=== PATIENT | female | born 1940 | race Caucasian/White ===

== ENCOUNTER 2019-01-12 07:18 | Inpatient (IN) | payer MEDICARE ==
[2019-01-12] MEDS ORDERED: ONDANSETRON HCL INJ/PF 4 MG/2 ML SDV IV ONE (08:35)
[2019-01-12 08:58] LABS: APPEARANCE,URINE SLIGHTLY-CLOUDY; BILIRUBIN,URINE NEGATIVE (NEGATIVE); COLOR,URINE YELLOW; GLUCOSE, URINE NEGATIVE (NEGATIVE); KETONES,URINE NEGATIVE (NEGATIVE); LEUKOCYTE ESTERASE,URINE SMALL (NEGATIVE); NITRITE,URINE NEGATIVE (NEGATIVE); PROTEIN,URINE NEGATIVE (NEGATIVE)
[2019-01-12] MEDS ORDERED: SUCRALFATE SUSP 1 GM/10 ML UDCUP PO ONE (09:04)
[2019-01-12] MEDS ORDERED: FAMOTIDINE INJ/PF 20 MG/2 ML SDV IV ONE (09:04)
[2019-01-12 09:27] LABS: HEMATOCRIT 45.2 % (36.0-47.0); HEMOGLOBIN 15.2 g/dL (12.0-15.5); MEAN CORPUSCULAR HEMOGLOBIN 30.1 pg (27.0-33.4); MEAN CORPUSCULAR HGB CONC 33.7 g/dL (32.0-36.0); MEAN CORPUSCULAR VOLUME 90 fl (80-97); PLATELET COUNT 210 10^3/uL (150-450); RED BLOOD COUNT 5.05 10^6/uL (3.72-5.28); RED CELL DISTRIBUTION WIDTH 13.7 % (11.5-14.0); WHITE BLOOD COUNT 16.9 10^3/uL (4.0-10.5)
[2019-01-12 09:43] LABS: ALANINE AMINOTRANSFERASE 418 U/L (9-52); ALBUMIN 4.5 g/dL (3.5-5.0); ALKALINE PHOSPHATASE 299 U/L (38-126); ANION GAP 9 (5-19); ASPARTATE AMINO TRANSFERASE 359 U/L (14-36); BILIRUBIN,DIRECT 2.6 mg/dL (0.0-0.4); BILIRUBIN,TOTAL 3.5 mg/dL (0.2-1.3); BLOOD UREA NITROGEN 22 mg/dL (7-20); CALCIUM 9.7 mg/dL (8.4-10.2); CARBON DIOXIDE 35 mmol/L (22-30); CHLORIDE 96 mmol/L (98-107); GLUCOSE 181 mg/dL (75-110); POTASSIUM 3.6 mmol/L (3.6-5.0); SODIUM 139.8 mmol/L (137-145); TOTAL PROTEIN 7.9 g/dL (6.3-8.2)
[2019-01-12 09:59] LABS: ABSOLUTE LYMPHOCYTES# (MANUAL) 0.2 10^3/uL (0.5-4.7); ABSOLUTE MONOCYTES # (MANUAL) 0.7 10^3/uL (0.1-1.4); ABSOLUTE NEUTROPHILS# (MANUAL) 16.1 10^3/uL (1.7-8.2); BASOPHILS % (MANUAL) 0 % (0-2); EOSINOPHILS % (MANUAL) 0 % (0-6); LYMPHOCYTES % (MANUAL) 1 % (13-45); MONOCYTES % (MANUAL) 4 % (3-13); PLATELET COMMENT ADEQUATE; RBC MORPHOLOGY COMMENT NORMO-CYTIC/CHROMIC; SEGMENTED NEUTROPHILS % (MAN) 95 % (42-78); TOTAL CELLS COUNTED 100
[2019-01-12 10:33] LABS: LIPASE 32621.6 U/L (23-300)
--- NOTE | 2019-01-12 10:45 | RADIOLOGY REPORT (SQ) ---
EXAM DESCRIPTION: CT ABD/PELVIS WITH IV ONLY COMPLETED DATE/TIME: 01/12/2019 10:31 am REASON FOR STUDY: epigastric pain/vomiting COMPARISON: None. TECHNIQUE: CT scan of the abdomen and pelvis performed using helical scanning technique with dynamic intravenous contrast injection. No oral contrast. Images reviewed with lung, soft tissue, and bone windows. Reconstructed coronal and sagittal MPR images reviewed. Delayed images for evaluation of the urinary system also acquired. All images stored on PACS. All CT scanners at this facility use dose modulation, iterative reconstruction, and/or weight based d osing when appropriate to reduce radiation dose to as low as reasonably achievable (ALARA). [facility]: Dose Right [facility]: CareDose [facility]: Dose Right [facility]: Teradose 4D [facility]: BIMA CONTRAST TYPE AND DOSE: contrast/concentration: Isovue 350.00 mg/ml; Total Contrast Delivered: 95.0 ml; Total Saline Delivered: 42.7 ml RENAL FUNCTION: Creatinine 1.0 RADIATION DOSE: CT Rad equipment meets quality standard of care and radiation dose reduction techniq ues were employed. CTDIvol: 12.4 - 15.6 mGy. DLP: 1495 mGy-cm.. LIMITATIONS: None. FINDINGS: LOWER CHEST: Patchy airspace disease at the left lung base, atelectasis versus pneumonia. LIVER: Normal size. No masses. No dilated ducts. SPLEEN: Normal size. No focal lesions. PANCREAS: No masses. No significant calcifications. No adjacent inflammation or peripancreatic fluid collections. Pancreatic duct not dilated. GALLBLADDER: There is pericholecystic fluid on coronal images 27-30. Question cholecystitis. Right upper quadrant ultrasound is recommended for followup, to evaluate for gallstones and common duct sto michelle. ADRENAL GLANDS: No significant masses or asymmetry. RIGHT KIDNEY AND URETER: No solid masses. No significant calcifications. No hydronephrosis or hyd roureter. LEFT KIDNEY AND URETER: No solid masses. 4 mm right upper pole intrarenal nonobstructive stone janny nal image 44/69. No hydronephrosis or hydroureter. AORTA AND VESSELS: No aneurysm. No dissection. Renal arteries, SMA, celiac without stenosis. RETROPERITONEUM: No retroperitoneal adenopathy, hemorrhage or masses. BOWEL AND PERITONEAL CAVITY: No free intraperitoneal air. No CT evidence of bowel obstruction. Sigm oid colon diverticuli without CT signs of acute diverticulitis. APPENDIX: Normal. PELVIS: Streak artifact from bilateral total hip replacements. Grossly normal size uterus. Bladder not well seen. No gross free fluid or pelvic adenopathy ABDOMINAL WALL: No masses. No hernias. BONES: Degenerative disc changes throughout the lumbar spine. Bilateral total hip replacements OTHER: No other significant finding. IMPRESSION: Pericholecystic fluid, question acute cholecystitis. Right upper quadrant ultrasound is recommended to evaluate for gallstones/ common bile duct stones TECHNICAL DOCUMENTATION: JOB ID: [id number] Quality ID # [id number]: Final reports with documentation of one or more dose reduction techniques (e.g., Au tomated exposure control, adjustment of the mA and/or kV according to patient size, use of iterative reconstruction technique) 2010 [employer]- All Rights Reserved Reading location - IP/workstation name: [email or web address]
[2019-01-12] MEDS ORDERED: FENTANYL CITRATE INJ/PF 100 MCG/2 ML AMPUL IV ONE (10:47)
[2019-01-12] MEDS ORDERED: PIPERACILLIN/TAZOBACTAM 4.5 GM VIAL IV ONE (10:54)
[2019-01-12] MEDS ORDERED: RINGERS SOLUTION,LACTATED 1,000 ML IV ONE (11:42)
--- NOTE | 2019-01-12 11:54 | ER Document Report ---
ED General <ELIZABETH MONTALVO - Last Filed: 01/12/19 21:24> - General TRAVEL OUTSIDE OF THE [place] IN LAST 30 DAYS: No <ART STACY - Last Filed: 01/13/19 12:33> - General Chief Complaint: Abdominal Pain Stated Complaint: ABDOMINAL PAIN Time Seen by Provider: 01/12/19 08:35 Primary Care Provider: MARILIN CASTANON MD [Primary Care Provider] - Follow up as needed Notes: Patient is a 70-year-old female presents to the emergency department for generalized abdominal pain intermittently for the last year and a half. Patient states she has vomited x5 last night and has increased in her epigastric abdominal pain which is why she presents to the emergency room. Patient is denying any diarrhea. She is denying any fever but states yesterday she did have chills. Patient states her last bowel movement was in the emergency room in triage and was "normal." Patient is denying any chest pain or shortness of breath. Past medical history: Hypertension, GERD, pseudogout Medications: HCTZ, colchicine, omeprazole, diclofenac Allergies: Lisinopril (ART STACY) - Related Data Allergies/Adverse Reactions: lisinopril [Lisinopril] Allergy (Mild, Verified 01/12/19 07:21) cough Past Medical History - General Information source: Patient - Social History Smoking Status: Never Smoker Chew tobacco use (# tins/day): No Frequency of alcohol use: None Drug Abuse: None Family History: Reviewed & Not Pertinent Patient has suicidal ideation: No Patient has homicidal ideation: No - Past Medical History Cardiac Medical History: Reports: Hx Hypertension - medicated Denies: Hx Heart Attack Pulmonary Medical History: Denies: Hx Asthma Neurological Medical History: Denies: Hx Cerebrovascular Accident, Hx Seizures Renal/ Medical History: Denies: Hx Peritoneal Dialysis GI Medical History: Denies: Hx Hepatitis, Hx Hiatal Hernia, Hx Ulcer Infectious Medical History: Denies: Hx Hepatitis Past Surgical History: Reports: Hx Orthopedic Surgery - back, hips,. Denies: Hx Hysterectomy, Hx Mastectomy, Hx Open Heart Surgery, Hx Pacemaker <ART STACY - Last Filed: 01/13/19 12:33> Review of Systems - Review of Systems Constitutional: See HPI EENT: No symptoms reported Cardiovascular: No symptoms reported Respiratory: No symptoms reported Gastrointestinal: See HPI Genitourinary: No symptoms reported Female Genitourinary: No symptoms reported Musculoskeletal: No symptoms reported Skin: No symptoms reported Hematologic/Lymphatic: No symptoms reported Neurological/Psychological: No symptoms reported <ART STACY - Last Filed: 01/13/19 12:33> Physical Exam <ART STACY - Last Filed: 01/13/19 12:33> - Vital signs Vitals: Temp Pulse Resp BP Pulse Ox 98.7 F 97 16 146/67 H 94 01/12/19 07:23 01/12/19 07:23 01/12/19 07:23 01/12/19 07:23 01/12/19 07:23 - Notes Notes: GENERAL: Pallor alert, interacts well. No acute distress. HEAD: Normocephalic, atraumatic. EYES: Pupils equal, round, and reactive to light. Extraocular movements intact. No scleral icterus noted ENT: Oral mucosa moist, tongue midline. NECK: Full range of motion. Supple. Trachea midline. LUNGS: Clear to auscultation bilaterally, no wheezes, rales, or rhonchi. No respiratory distress. HEART: Regular rate and rhythm. No murmur ABDOMEN: Soft, Non-distended. Bowel sounds present in all 4 quadrants. General ized tenderness noted right upper quadrant epigastric right lower quadrant and left lower quadrant. EXTREMITIES: Moves all 4 extremities spontaneously. No edema, normal radial and dorsalis pedis pulses bilaterally. No cyanosis. BACK: no cervical, thoracic, lumbar midline tenderness. No saddle anesthesia, normal distal neurovascular exam. No CVA tenderness noted bilaterally NEUROLOGICAL: Alert and oriented x3. Normal speech. cranial nerves II through XII grossly intact PSYCH: Normal affect, normal mood. SKIN: Warm, dry, normal turgor. No rashes or lesions noted. (ART STACY) Course - Laboratory Result Diagrams: 01/12/19 09:06 01/12/19 09:06 <ELIZABETH MONTALVO - Last Filed: 01/12/19 21:24> - Laboratory Result Diagrams: 01/13/19 05:10 01/13/19 05:10 <ART STACY - Last Filed: 01/13/19 12:33> - Re-evaluation Re-evalutation: 01/12/19 19:30 Spoke with transfer center at [facility]. They are not accepting any patients even to waiting lists at this time due to capacity. ERCP is not available at [facility]. 01/12/19 21:25 Called and spoke with [facility] transfer center, they connected me to the ED, I spoke to ED physician Dr. Aldrich. He declined the patient, states they have a long list of accepted pending patients and they will not be able to take my patient. He states since the patient is accepted to [facility], although still waiting, he declines the patient. (KATIA,ELIZABETH) Patient's labs do reveal a transaminase, AST 359, ALT 418, alk phos, 299. Patient's total bilirubin is 3.5, direct bilirubin is 2.6, patient's lipase is 32,006 21. Patient does have a leukocytosis of 16.9. Patient is afebrile and does not appear jaundice, does appear pale in the emergency room. Patient's general abdominal CT is suggestive of cholecystitis, recommending an ultrasound, ordered at this time. Discussed case with Dr. Collins gastroenterology at [facility] who will accept the patient at their facility. Accepting physician will be hospitalist Dr. Baltazar Becker. Patient states she is no longer nauseated but does have continued pain. Pain medication ordered. Dr. Collins is recommending lactated Ringer's at 200 mL an hour. Patient's vitals are currently stable. 01/13/19 11:49 Patient has not been in the emergency department for over 24 hours. gastroenterology and julieta Muñoz had called the hospital and requested that we speak with our surgeon to perform an MRCP. States they do not have any beds and are unsure of when they are going to have a bed for the patient to be transferred. Our facility does not have access to ERCPs. He is requesting an MRCP and further care for the patient's pancreatitis. Our surgeon Dr. Melo spoke with gastroenterology Dr. Vaughn and have agreed naveen t the patient should be admitted to [facility]. Dr. Melo is requesting I speak with the hospitalist at [facility] to admit the patient as a medical patient with a surgery consult. I spoke with hospitalist Dr. Hussein who is expressing that this is a surgical patient and he will not admit. States typically these patients are admitted to the surgical list and medicine is consulted. Again discussed case with surgeon Dr. Melo who states he will admit the patient to his service. (ART STACY) - Vital Signs Vital signs: Temp Pulse Resp BP Pulse Ox 98.5 F 82 16 124/54 L 93 01/13/19 08:16 01/12/19 20:51 01/13/19 07:01 01/13/19 08:01 01/13/19 08:01 - Laboratory Laboratory results interpreted by me: 01/12/19 01/12/19 01/12/19 08:27 09:06 09:06 WBC 16.9 H Hct Seg Neuts % (Manual) 95 H Lymphocytes % (Manual) 1 L Abs Neuts (Manual) 16.1 H Abs Lymphs (Manual) 0.2 L Potassium Chloride 96 L Carbon Dioxide 35 H BUN 22 H Est GFR (Non-Af Amer) 54 L Glucose 181 H Total Bilirubin 3.5 H Direct Bilirubin 2.6 H AST 359 H ALT 418 H Alkaline Phosphatase 299 H Total Protein Albumin Lipase 31150.6 H Urine Blood SMALL H Urine Urobilinogen 4.0 H Ur Leukocyte Esterase SMALL H 01/13/19 01/13/19 05:10 05:10 WBC Hct 35.7 L Seg Neuts % (Manual) Lymphocytes % (Manual) Abs Neuts (Manual) Abs Lymphs (Manual) Potassium 3.4 L Chloride Carbon Dioxide 34 H BUN Est GFR (Non-Af Amer) Glucose Total Bilirubin 4.8 H Direct Bilirubin 3.6 H AST 181 H ALT 269 H Alkaline Phosphatase 222 H Total Protein 5.2 L Albumin 2.9 L Lipase 673.4 H Urine Blood Urine Urobilinogen Ur Leukocyte Esterase Discharge <ELIZABETH MONTALVO - Last Filed: 01/12/19 21:24> - Discharge Admitting Provider: Surgicalist - Dr. Melo Unit Admitted: Surgical Floor <ART STACY - Last Filed: 01/13/19 12:33> - Discharge Clinical Impression: Cholecystitis Pancreatitis Qualifiers: Chronicity: acute Pancreatitis type: other Acute pancreatitis complication: unspecified Qualified Code(s): K85.80 - Other acute pancreatitis without necrosis or infection Condition: Fair Disposition: ADMITTED INPATIENT Referrals: MARILIN CASTANON MD [Primary Care Provider] - Follow up as needed
--- NOTE | 2019-01-12 12:44 | RADIOLOGY REPORT (SQ) ---
EXAM DESCRIPTION: U/S ABDOMEN LTD W/DOPPLER COMPLETED DATE/TIME: 01/12/2019 12:35 pm REASON FOR STUDY: RUQ pain COMPARISON: CT abdomen pelvis, 01/12/2019 TECHNIQUE: Dynamic and static grayscale images acquired of the abdomen and recorded on PACS. Maricruz may selected color Doppler and spectral images recorded. LIMITATIONS: None. FINDINGS: PANCREAS: Poorly visualized. LIVER: No masses. Echotexture normal. LIVER VASCULATURE: Normal directional flow of the main portal vein and hepatic veins. GALLBLADDER: Gallstones and gall sludge. Thickening of the gallbladder wall to 0.5 cm. Small volume pericholecystic fluid. ULTRASOUND-DETECTED FALCON'S SIGN: Indeterminate due to patient medication. INTRAHEPATIC DUCTS AND COMMON DUCT: CBD and intrahepatic ducts normal caliber. No filling defects. INFERIOR VENA CAVA: Normal flow. AORTA: No aneurysm. RIGHT KIDNEY: Normal size. Normal echogenicity. No solid or suspicious masses. No hydronephrosis. No calcifications. PERITONEAL AND RIGHT PLEURAL SPACE: No ascites or effusions. OTHER: No other significant findings. IMPRESSION: Gallstones and gall sludge with thickening of the gallbladder wall to 0.5 cm. Small vol ume pericholecystic fluid. No biliary ductal dilatation. Sonographic Falcon sign indeterminate due to patient medication. Findings are concerning for acute cholecystitis. HIDA may be used to evaluat e for patency of the cystic and common bile ducts if desired. TECHNICAL DOCUMENTATION: JOB ID: [id number] [employer] All Rights Reserved Reading location - IP/workstation name: [email or web address]
[2019-01-12] MEDS: RINGERS SOLUTION,LACTATED 1,000 ML IV PRN ×2 (14:18→19:22)
[2019-01-12] MEDS ORDERED: RINGERS SOLUTION,LACTATED 1,000 ML IV PRN (18:03)
[2019-01-12] MEDS ORDERED: ONDANSETRON HCL INJ/PF 4 MG/2 ML SDV IV PRN (19:01)
[2019-01-12] MEDS ORDERED: FENTANYL CITRATE INJ/PF 100 MCG/2 ML AMPUL IV PRN (19:02)
[2019-01-12] MEDS: PIPERACILLIN/TAZOBACTAM 3.375 GM VIAL IV SCH (19:56)
[2019-01-13] MEDS: PIPERACILLIN/TAZOBACTAM 3.375 GM VIAL IV SCH ×3 (01:18→13:15)
[2019-01-13 05:34] LABS: ABSOLUTE EOSINOPHILS # (AUTO) 0.2 10^3/uL (0.0-0.6); ABSOLUTE LYMPHOCYTES (AUTO) 1.3 10^3/uL (0.5-4.7); ABSOLUTE MONOCYTES (AUTO) 0.7 10^3/uL (0.1-1.4); ABSOLUTE NEUT (AUTO) 5.1 10^3/uL (1.7-8.2); BASOPHILS % (AUTO) 0.7 % (0-2); EOSINOPHILS % (AUTO) 2.4 % (0-6); HEMATOCRIT 35.7 % (36.0-47.0); LYMPHOCYTES % (AUTO) 17.3 % (13-45); MEAN CORPUSCULAR HEMOGLOBIN 30.4 pg (27.0-33.4); MEAN CORPUSCULAR HGB CONC 34.4 g/dL (32.0-36.0); MEAN CORPUSCULAR VOLUME 88 fl (80-97); MONOCYTES % (AUTO) 9.6 % (3-13); PLATELET COUNT 161 10^3/uL (150-450); RED BLOOD COUNT 4.05 10^6/uL (3.72-5.28); RED CELL DISTRIBUTION WIDTH 13.9 % (11.5-14.0); TOTAL CELLS COUNTED % (AUTO) 100 %; WHITE BLOOD COUNT 7.2 10^3/uL (4.0-10.5)
[2019-01-13 05:41] LABS: ALANINE AMINOTRANSFERASE 269 U/L (9-52); ALBUMIN 2.9 g/dL (3.5-5.0); ALKALINE PHOSPHATASE 222 U/L (38-126); ANION GAP 7 (5-19); ASPARTATE AMINO TRANSFERASE 181 U/L (14-36); BILIRUBIN,DIRECT 3.6 mg/dL (0.0-0.4); BILIRUBIN,TOTAL 4.8 mg/dL (0.2-1.3); BLOOD UREA NITROGEN 17 mg/dL (7-20); CALCIUM 8.8 mg/dL (8.4-10.2); CARBON DIOXIDE 34 mmol/L (22-30); CHLORIDE 101 mmol/L (98-107); GLUCOSE 99 mg/dL (75-110); LIPASE 673.4 U/L (23-300); POTASSIUM 3.4 mmol/L (3.6-5.0); SODIUM 141.5 mmol/L (137-145); TOTAL PROTEIN 5.2 g/dL (6.3-8.2)
[2019-01-13 05:44] LABS: HEMOGLOBIN 12.3 g/dL (12.0-15.5)
--- NOTE | 2019-01-13 09:26 | ER Document Report ---
ED Medical Screen (RME) - General Chief Complaint: Abdominal Pain Stated Complaint: ABDOMINAL PAIN Time Seen by Provider: 01/12/19 08:35 Primary Care Provider: MARILIN CASTANON MD [Primary Care Provider] - Follow up as needed TRAVEL OUTSIDE OF THE [place] IN LAST 30 DAYS: No - Related Data Allergies/Adverse Reactions: lisinopril [Lisinopril] Allergy (Mild, Verified 01/12/19 07:21) cough Past Medical History - Social History Chew tobacco use (# tins/day): No Frequency of alcohol use: None Drug Abuse: None - Past Medical History Cardiac Medical History: Reports: Hx Hypertension - medicated Denies: Hx Heart Attack Pulmonary Medical History: Denies: Hx Asthma Neurological Medical History: Denies: Hx Cerebrovascular Accident, Hx Seizures Renal/ Medical History: Denies: Hx Peritoneal Dialysis GI Medical History: Denies: Hx Hepatitis, Hx Hiatal Hernia, Hx Ulcer Infectious Medical History: Denies: Hx Hepatitis Past Surgical History: Reports: Hx Orthopedic Surgery - back, hips,. Denies: Hx Hysterectomy, Hx Mastectomy, Hx Open Heart Surgery, Hx Pacemaker Physical Exam - Vital signs Vitals: Temp Pulse Resp BP Pulse Ox 98.7 F 97 16 146/67 H 94 01/12/19 07:23 01/12/19 07:23 01/12/19 07:23 01/12/19 07:23 01/12/19 07:23 Course - Vital Signs Vital signs: Temp Pulse Resp BP Pulse Ox 98.5 F 82 16 124/54 L 93 01/13/19 08:16 01/12/19 20:51 01/13/19 07:01 01/13/19 08:01 01/13/19 08:01 - Laboratory Result Diagrams: 01/13/19 05:10 01/13/19 05:10 Laboratory results interpreted by me: 01/12/19 01/12/19 01/12/19 08:27 09:06 09:06 WBC 16.9 H Hct Seg Neuts % (Manual) 95 H Lymphocytes % (Manual) 1 L Abs Neuts (Manual) 16.1 H Abs Lymphs (Manual) 0.2 L Potassium Chloride 96 L Carbon Dioxide 35 H BUN 22 H Est GFR (Non-Af Amer) 54 L Glucose 181 H Total Bilirubin 3.5 H Direct Bilirubin 2.6 H AST 359 H ALT 418 H Alkaline Phosphatase 299 H Total Protein Albumin Lipase 59519.6 H Urine Blood SMALL H Urine Urobilinogen 4.0 H Ur Leukocyte Esterase SMALL H 01/13/19 01/13/19 05:10 05:10 WBC Hct 35.7 L Seg Neuts % (Manual) Lymphocytes % (Manual) Abs Neuts (Manual) Abs Lymphs (Manual) Potassium 3.4 L Chloride Carbon Dioxide 34 H BUN Est GFR (Non-Af Amer) Glucose Total Bilirubin 4.8 H Direct Bilirubin 3.6 H AST 181 H ALT 269 H Alkaline Phosphatase 222 H Total Protein 5.2 L Albumin 2.9 L Lipase 673.4 H Urine Blood Urine Urobilinogen Ur Leukocyte Esterase Doctor's Discharge - Discharge Clinical Impression: Cholecystitis Pancreatitis Qualifiers: Chronicity: acute Pancreatitis type: other Acute pancreatitis complication: unspecified Qualified Code(s): K85.80 - Other acute pancreatitis without necrosis or infection Condition: Fair Disposition: [facility] Referrals: MARILIN CASTANON MD [Primary Care Provider] - Follow up as needed
--- NOTE | 2019-01-13 09:30 | ER Document Report ---
Doctor's Note Notes: 01/13/19 09:28 Patient is a 70-year-old female presents to the emergency department for generalized abdominal pain intermittently for the last year and a half. Patient states she has vomited x5 last night and has increased in her epigastric abdominal pain which is why she presents to the emergency room. Patient found to have markedly elevated lipase, bilirubin. Patient is requiring ERCP which cannot be performed [facility]. Patient has been accepted to [facility] although she is still on a wait list. Several attempts to transfer the patient to other hospitals were performed last night but unsuccessful. This morning patient states that she is feeling better. No events overnight. Repeat lipase today has improved significantly. Total bili still elevated. PHYSICAL EXAMINATION: GENERAL: Well-appearing, well-nourished and in no acute distress. HEAD: Atraumatic, normocephalic. EYES: Pupils equal round extraocular movements intact, conjunctiva are normal. ENT: Nares patent NECK: Normal range of motion LUNGS: No respiratory distress Musculoskeletal: Normal range of motion NEUROLOGICAL: Normal speech, normal gait. PSYCH: Normal mood, normal affect. SKIN: Mild jaundice 01/13/19 09:30 Laboratory 01/12/19 01/12/19 01/12/19 08:27 09:06 09:06 WBC 16.9 H RBC 5.05 Hgb 15.2 Hct 45.2 MCV 90 MCH 30.1 MCHC 33.7 RDW 13.7 Plt Count 210 Total Counted 100 Seg Neutrophils % Not Reportable Seg Neuts % (Manual) 95 H Lymphocytes % Not Reportable Lymphocytes % (Manual) 1 L Monocytes % Not Reportable Monocytes % (Manual) 4 Eosinophils % Not Reportable Eosinophils % (Manual) 0 Basophils % Not Reportable Basophils % (Manual) 0 Absolute Neutrophils Not Reportable Abs Neuts (Manual) 16.1 H Absolute Lymphocytes Not Reportable Abs Lymphs (Manual) 0.2 L Absolute Monocytes Not Reportable Abs Monocytes (Manual) 0.7 Absolute Eosinophils Not Reportable Absolute Eos (Manual) 0.0 Absolute Basophils Not Reportable Abs Basophils (Manual) 0.0 Platelet Comment ADEQUATE RBC Morph Comment NORMO-CYTIC/CHROMIC Sodium 139.8 Potassium 3.6 Chloride 96 L Carbon Dioxide 35 H Anion Gap 9 BUN 22 H Creatinine 1.00 Est GFR ( Amer) > 60 Est GFR (Non-Af Amer) 54 L Glucose 181 H Lactic Acid Calcium 9.7 Total Bilirubin 3.5 H Direct Bilirubin 2.6 H Neonat Total Bilirubin Not Reportable Neonat Direct Bilirubin Not Reportable Neonat Indirect Bili Not Reportable AST 359 H ALT 418 H Alkaline Phosphatase 299 H Total Protein 7.9 Albumin 4.5 Lipase 76077.6 H Urine Color YELLOW Urine Appearance SLIGHTLY-CLOUDY Urine pH 6.0 Ur Specific [place] 1.010 Urine Protein NEGATIVE Urine Glucose (UA) NEGATIVE Urine Ketones NEGATIVE Urine Blood SMALL H Urine Nitrite NEGATIVE Urine Bilirubin NEGATIVE Urine Urobilinogen 4.0 H Ur Leukocyte Esterase SMALL H Urine WBC (Auto) 4 Urine RBC (Auto) 6 Urine Bacteria (Auto) TRACE Squamous Epi Cells Auto 4 Urine Mucus (Auto) RARE Urine Ascorbic Acid NEGATIVE 01/12/19 01/13/19 01/13/19 12:58 05:10 05:10 WBC 7.2 RBC 4.05 Hgb 12.3 D Hct 35.7 L MCV 88 MCH 30.4 MCHC 34.4 RDW 13.9 Plt Count 161 Total Counted Seg Neutrophils % 70.0 Seg Neuts % (Manual) Lymphocytes % 17.3 Lymphocytes % (Manual) Monocytes % 9.6 Monocytes % (Manual) Eosinophils % 2.4 Eosinophils % (Manual) Basophils % 0.7 Basophils % (Manual) Absolute Neutrophils 5.1 Abs Neuts (Manual) Absolute Lymphocytes 1.3 Abs Lymphs (Manual) Absolute Monocytes 0.7 Abs Monocytes (Manual) Absolute Eosinophils 0.2 Absolute Eos (Manual) Absolute Basophils 0.0 Abs Basophils (Manual) Platelet Comment RBC Morph Comment Sodium 141.5 Potassium 3.4 L Chloride 101 Carbon Dioxide 34 H Anion Gap 7 BUN 17 Creatinine 0.87 Est GFR ( Amer) > 60 Est GFR (Non-Af Amer) > 60 Glucose 99 Lactic Acid 1.2 Calcium 8.8 Total Bilirubin 4.8 H Direct Bilirubin 3.6 H Neonat Total Bilirubin Not Reportable Neonat Direct Bilirubin Not Reportable Neonat Indirect Bili Not Reportable AST 181 H ALT 269 H Alkaline Phosphatase 222 H Total Protein 5.2 L Albumin 2.9 L Lipase 673.4 H Urine Color Urine Appearance Urine pH Ur Specific [place] Urine Protein Urine Glucose (UA) Urine Ketones Urine Blood Urine Nitrite Urine Bilirubin Urine Urobilinogen Ur Leukocyte Esterase Urine WBC (Auto) Urine RBC (Auto) Urine Bacteria (Auto) Squamous Epi Cells Auto Urine Mucus (Auto) Urine Ascorbic Acid
--- NOTE | 2019-01-13 12:02 | PDOC H&P ---
History of Present Illness Admission Date/PCP: MARILIN CASTANON MD Patient complains of: Abdominal pain History of Present Illness: ANH RAPP is a 78 year old female. The emergency department asked me today to evaluate this patient who originally had been slated for transferred to [facility], however there were no beds available. Another facility had the capability to do an ERCP if needed but the facility did not wish to take over her definitive care. Patient has had several episodes of nausea and vomiting and abdominal pain lasting for several days at a time in the past year. She has had associated chills. She has had upper abdominal pain that persisted for several days. She comes in now with another such episode that began 3 days ago. Her abdominal pain is still present but has markedly improved. She has noticed some changes in her urinary color to orange. She denies any known jaundice however. She denies any fever. No history of hepatitis and no history of alcohol abuse. No recent trauma. No shortness of breath and no chest pain. Past Medical History Cardiac Medical History: Reports: Hypertension - medicated Denies: Myocardial Infarction Pulmonary Medical History: Denies: Asthma Neurological Medical History: Denies: Seizures GI Medical History: Denies: Hepatitis, Hiatal Hernia Hematology: Denies: Anemia, Sickle Cell Disease Past Surgical History Past Surgical History: Reports: Orthopedic Surgery - back, hips, Denies: Amputation, Hysterectomy, Mastectomy, Pacemaker Social History Smoking Status: Former Smoker - Quit 40 years ago Frequency of Alcohol Use: None Hx Recreational Drug Use: No Family History Family History: Reviewed & Not Pertinent Parental Family History Reviewed: Yes Children Family History Reviewed: Yes Sibling(s) Family History Reviewed.: Yes Medication/Allergy Home Medications: Colchicine [Colcrys] 0.6 mg PO QAM 10/01/14 Diclofenac Sodium [Voltaren] 75 mg PO BID 10/01/14 Hydrochlorothiazide 25 mg PO QAM 10/01/14 Omeprazole 20 mg PO QHS 10/01/14 Allergies/Adverse Reactions: lisinopril [Lisinopril] Allergy (Mild, Verified 01/12/19 07:21) cough Physical Exam Vital Signs: Temp Pulse Resp BP Pulse Ox 98.5 F 82 16 124/54 L 93 01/13/19 08:16 01/12/19 20:51 01/13/19 07:01 01/13/19 08:01 01/13/19 08:01 Intake & Output 01/12/19 01/13/19 01/14/19 06:59 06:59 06:59 Intake Total 3000 1000 Balance 3000 1000 Weight 82.9 kg General appearance: PRESENT: no acute distress, cooperative Neck exam: PRESENT: other - Supple with no masses and no tenderness Respiratory exam: PRESENT: clear to auscultation [place] Cardiovascular exam: PRESENT: RRR GI/Abdominal exam: PRESENT: other - Soft, nondistended, mild upper abdominal tenderness without peritoneal signs. Extremities exam: PRESENT: other - No swelling and no tenderness Neurological exam: PRESENT: alert, awake Psychiatric exam: PRESENT: appropriate affect Skin exam: PRESENT: warm Results Laboratory Results: 01/13/19 05:10 01/13/19 05:10 01/12/19 01/13/19 01/13/19 12:58 05:10 05:10 WBC 7.2 RBC 4.05 Hgb 12.3 D Hct 35.7 L MCV 88 MCH 30.4 MCHC 34.4 RDW 13.9 Plt Count 161 Seg Neutrophils % 70.0 Lymphocytes % 17.3 Monocytes % 9.6 Eosinophils % 2.4 Basophils % 0.7 Absolute Neutrophils 5.1 Absolute Lymphocytes 1.3 Absolute Monocytes 0.7 Absolute Eosinophils 0.2 Absolute Basophils 0.0 Sodium 141.5 Potassium 3.4 L Chloride 101 Carbon Dioxide 34 H Anion Gap 7 BUN 17 Creatinine 0.87 Est GFR ( Amer) > 60 Est GFR (Non-Af Amer) > 60 Glucose 99 Lactic Acid 1.2 Calcium 8.8 Total Bilirubin 4.8 H AST 181 H ALT 269 H Alkaline Phosphatase 222 H Total Protein 5.2 L Albumin 2.9 L Lipase 673.4 H Impressions: Abdomen/Pelvis CT 01/12/19 08:35 IMPRESSION: Pericholecystic fluid, question acute cholecystitis. Right upper quadrant ultrasound is recommended to evaluate for gallstones/ common bile duct stones Abdomen Ultrasound 01/12/19 10:46 IMPRESSION: Gallstones and gall sludge with thickening of the gallbladder wall to 0.5 cm. Small volume pericholecystic fluid. No biliary ductal dilatation. Sonographic Johnson sign indeterminate due to patient medication. Findings are concerning for acute cholecystitis. HIDA may be used to evaluate for patency of the cystic and common bile ducts if desired. Assessment & Plan - Diagnosis (1) Gallstone pancreatitis Is this a current diagnosis for this admission?: Yes Plan: Pancreatitis appears to be mild. Will need laparoscopic cholecystectomy once the pancreatitis has resolved. Her liver function studies are suggestive of retained common bile duct stones. Will reevaluate her LFTs tomorrow. If they are still elevated. will consult gastroenterology for an ERCP. We do not have a inspector packer glass container on-call who does that procedure however a inspector packer glass container in town may be willing to do this procedure. If not, we will have the patient transferred to outside facility for the ERCP. In the meantime will obtain an MRCP as per gastroenterology at the outside facility request.
[2019-01-13] MEDS ORDERED: HYDROMORPHONE HCL INJ/PF 2 MG/ML AMPULE IV PRN (12:07)
--- NOTE | 2019-01-13 12:44 | PDOC CONSULTATION ---
Consultation Consult Date: 01/13/19 Attending physician:: JACLYN CHEN Consult reason:: cholecystitis, pancreatitis History of Present Illness Admission Date/PCP: MARILIN CASTANON MD Patient complains of: abdominal pain History of Present Illness: ANH RAPP is a 78 year old female with no significant past medical history aside from a history of well-controlled hypertension and pseudogout who presented with abdominal pain. Patient says she developed progressive and worsening epigastric and right upper quadrant pain on Saturday night associated with a few episodes of nonbilious nonbloody vomiting. She says she had some chills but did not have any fever. She denies dizziness. No confusion or mental status changes. In the ER, workup was remarkable for gallstone pancreatitis and acute cholecystitis. Patient was supposed to transfer to [facility] for ERCP however they are at capacity at the moment and hence is not able to accept patient at this time. Patient is being admitted under surgery. Hospitalist service was consulted for further medical comanagement. Upon encounter, patient is not in acute distress. She does say her abdominal pain is slightly improved today. No recurrence of vomiting so far. Past Medical History Cardiac Medical History: Reports: Hypertension - medicated Denies: Myocardial Infarction Pulmonary Medical History: Denies: Asthma Neurological Medical History: Denies: Seizures GI Medical History: Denies: Hepatitis, Hiatal Hernia Hematology: Denies: Anemia, Sickle Cell Disease Past Surgical History Past Surgical History: Reports: Orthopedic Surgery - back, hips, Denies: Amputation, Hysterectomy, Mastectomy, Pacemaker Social History Smoking Status: Never Smoker Frequency of Alcohol Use: None Hx Recreational Drug Use: No Family History Family History: Reviewed & Not Pertinent Parental Family History Reviewed: Yes - no premature CAD Children Family History Reviewed: No Sibling(s) Family History Reviewed.: No Medication/Allergy Home Medications: Colchicine [Colcrys] 0.6 mg PO QAM 10/01/14 Diclofenac Sodium [Voltaren] 75 mg PO BID 10/01/14 Hydrochlorothiazide 25 mg PO QAM 10/01/14 Omeprazole 20 mg PO QHS 10/01/14 Allergies/Adverse Reactions: lisinopril [Lisinopril] Allergy (Mild, Verified 01/12/19 07:21) cough Review of Systems All systems: reviewed and no additional remarkable complaints except as stated - as mentioned in HPI Physical Exam Vital Signs: Temp Pulse Resp BP Pulse Ox 98.5 F 82 16 124/54 L 93 01/13/19 08:16 01/12/19 20:51 01/13/19 07:01 01/13/19 08:01 01/13/19 08:01 Intake & Output 01/12/19 01/13/19 01/14/19 06:59 06:59 06:59 Intake Total 3000 1000 Balance 3000 1000 Weight 182 lb 12.211 oz General appearance: PRESENT: no acute distress, well-developed, well-nourished Head exam: PRESENT: atraumatic, normocephalic Eye exam: PRESENT: scleral icterus - slightly icteric slcerae Ear exam: PRESENT: normal external ear exam Mouth exam: PRESENT: moist, tongue midline Neck exam: ABSENT: carotid bruit, JVD, lymphadenopathy, thyromegaly Respiratory exam: PRESENT: clear to auscultation [place]. ABSENT: rales, rhonchi, wheezes Pulses: PRESENT: normal dorsalis pedis pul GI/Abdominal exam: PRESENT: Johnson's sign, normal bowel sounds, soft, tenderness - minimal direct RUQ tenderness, no rebound tenderness or peritoneal signs. ABSENT: distended, guarding, mass, organolmegaly, rebound Rectal exam: PRESENT: deferred Neurological exam: PRESENT: alert, awake, oriented to person, oriented to place, oriented to time, oriented to situation, CN II-XII grossly intact. ABSENT: motor sensory deficit Results Laboratory Results: 01/13/19 05:10 01/13/19 05:10 01/12/19 01/13/19 01/13/19 12:58 05:10 05:10 WBC 7.2 RBC 4.05 Hgb 12.3 D Hct 35.7 L MCV 88 MCH 30.4 MCHC 34.4 RDW 13.9 Plt Count 161 Seg Neutrophils % 70.0 Lymphocytes % 17.3 Monocytes % 9.6 Eosinophils % 2.4 Basophils % 0.7 Absolute Neutrophils 5.1 Absolute Lymphocytes 1.3 Absolute Monocytes 0.7 Absolute Eosinophils 0.2 Absolute Basophils 0.0 Sodium 141.5 Potassium 3.4 L Chloride 101 Carbon Dioxide 34 H Anion Gap 7 BUN 17 Creatinine 0.87 Est GFR ( Amer) > 60 Est GFR (Non-Af Amer) > 60 Glucose 99 Lactic Acid 1.2 Calcium 8.8 Total Bilirubin 4.8 H AST 181 H ALT 269 H Alkaline Phosphatase 222 H Total Protein 5.2 L Albumin 2.9 L Lipase 673.4 H Impressions: Abdomen/Pelvis CT 01/12/19 08:35 IMPRESSION: Pericholecystic fluid, question acute cholecystitis. Right upper quadrant ultrasound is recommended to evaluate for gallstones/ common bile duct stones Abdomen Ultrasound 01/12/19 10:46 IMPRESSION: Gallstones and gall sludge with thickening of the gallbladder wall to 0.5 cm. Small volume pericholecystic fluid. No biliary ductal dilatation. Sonographic Johnson sign indeterminate due to patient medication. Findings are concerning for acute cholecystitis. HIDA may be used to evaluate for patency of the cystic and common bile ducts if desired. Assessment & Plan - Diagnosis (1) Gallstone pancreatitis Is this a current diagnosis for this admission?: Yes Plan: Surgery primarily managing. Anticipating cholecystectomy when her pancreatitis continue to improve. Keep patient NPO. Continue IV fluids. (2) Cholecystitis Is this a current diagnosis for this admission?: Yes Plan: As per number 1. Patient had some chills at home, no fever and had elevated WBC initially which has normalized today. No clinically overt signs suggestive of ascending cholangitis but will have to be closely monitored for such. Bilirubin trending up but AST and ALT are trending down. Recommend continuing Zosyn at this time. (3) Hypertension Is this a current diagnosis for this admission?: Yes Plan: Controlled. Blood pressures on the low normal end at this time. Hold off on HCTZ for now. (4) Hypokalemia Is this a current diagnosis for this admission?: Yes Plan: Replace with IV Potassium. Will check Mg as well. - Time Time Spent: 30 to 50 Minutes
--- NOTE | 2019-01-13 13:50 | PDOC PROGRESS REPORT ---
Subjective Progress Note for:: 01/13/19 Reason For Visit: GALLSTONE PANCREATITIS Physical Exam Vital Signs: Temp Pulse Resp BP Pulse Ox 98.5 F 82 16 124/54 L 93 01/13/19 08:16 01/12/19 20:51 01/13/19 07:01 01/13/19 08:01 01/13/19 08:01 Intake & Output 01/12/19 01/13/19 01/14/19 06:59 06:59 06:59 Intake Total 3000 1000 Balance 3000 1000 Weight 82.9 kg Results Laboratory Results: 01/13/19 05:10 01/13/19 05:10 01/13/19 01/13/19 01/13/19 05:10 05:10 05:10 WBC 7.2 RBC 4.05 Hgb 12.3 D Hct 35.7 L MCV 88 MCH 30.4 MCHC 34.4 RDW 13.9 Plt Count 161 Seg Neutrophils % 70.0 Lymphocytes % 17.3 Monocytes % 9.6 Eosinophils % 2.4 Basophils % 0.7 Absolute Neutrophils 5.1 Absolute Lymphocytes 1.3 Absolute Monocytes 0.7 Absolute Eosinophils 0.2 Absolute Basophils 0.0 Sodium 141.5 Potassium 3.4 L Chloride 101 Carbon Dioxide 34 H Anion Gap 7 BUN 17 Creatinine 0.87 Est GFR ( Amer) > 60 Est GFR (Non-Af Amer) > 60 Glucose 99 Calcium 8.8 Magnesium 1.6 Total Bilirubin 4.8 H AST 181 H ALT 269 H Alkaline Phosphatase 222 H Total Protein 5.2 L Albumin 2.9 L Lipase 673.4 H Impressions: Abdomen/Pelvis CT 01/12/19 08:35 IMPRESSION: Pericholecystic fluid, question acute cholecystitis. Right upper quadrant ultrasound is recommended to evaluate for gallstones/ common bile duct stones Abdomen Ultrasound 01/12/19 10:46 IMPRESSION: Gallstones and gall sludge with thickening of the gallbladder wall to 0.5 cm. Small volume pericholecystic fluid. No biliary ductal dilatation. Sonographic Johnson sign indeterminate due to patient medication. Findings are concerning for acute cholecystitis. HIDA may be used to evaluate for patency of the cystic and common bile ducts if desired. Assessment & Plan - Diagnosis (1) Gallstone pancreatitis Is this a current diagnosis for this admission?: Yes Plan: I have discussed her case with Dr. Teresa, navigation teacher in [facility] [address], who has agreed to do her ERCP during her admission here. He did not feel that she needed an MRCP (I concur) therefore it will not be ordered. We will see her response with conservative management overnight and if she continues to improve, she will undergo the ERCP tomorrow.
[2019-01-13] MEDS: POTASSI CL 20 MEQ/50 ML RIDER 20 MEQ/50 ML RTUPB IV SCH ×2 (15:36→17:55)
[2019-01-13] MEDS: NORMAL SALINE 1000 ML 1,000 ML IV PRN ×2 (15:37→22:36)
[2019-01-13] MEDS ORDERED: KETOROLAC TROMETHAMINE INJ/PF 30 MG/1 ML SDV IV PRN (16:57)
[2019-01-13] MEDS: PIPERACILLIN SODIUM/TAZOBACTAM 3.375 GM in NORMAL SALINE 100 ML IV SCH (22:35)
[2019-01-14] MEDS: PIPERACILLIN SODIUM/TAZOBACTAM 3.375 GM in NORMAL SALINE 100 ML IV SCH ×4 (05:02→21:59)
[2019-01-14] MEDS: NORMAL SALINE 1000 ML 1,000 ML IV PRN ×3 (05:03→21:59)
[2019-01-14 05:32] LABS: HEMATOCRIT 35.2 % (36.0-47.0); HEMOGLOBIN 11.9 g/dL (12.0-15.5); MEAN CORPUSCULAR HEMOGLOBIN 30.3 pg (27.0-33.4); MEAN CORPUSCULAR HGB CONC 33.8 g/dL (32.0-36.0); MEAN CORPUSCULAR VOLUME 90 fl (80-97); PLATELET COUNT 159 10^3/uL (150-450); RED BLOOD COUNT 3.93 10^6/uL (3.72-5.28); RED CELL DISTRIBUTION WIDTH 13.8 % (11.5-14.0); WHITE BLOOD COUNT 7.4 10^3/uL (4.0-10.5)
[2019-01-14 05:52] LABS: ALANINE AMINOTRANSFERASE 194 U/L (9-52); ALKALINE PHOSPHATASE 213 U/L (38-126); ANION GAP 7 (5-19); ASPARTATE AMINO TRANSFERASE 96 U/L (14-36); BILIRUBIN,DIRECT 1.3 mg/dL (0.0-0.4); BLOOD UREA NITROGEN 13 mg/dL (7-20); CALCIUM 8.9 mg/dL (8.4-10.2); CARBON DIOXIDE 31 mmol/L (22-30); CHLORIDE 104 mmol/L (98-107); CHOLESTEROL 165.07 mg/dL (0-200); GLUCOSE 76 mg/dL (75-110); POTASSIUM 3.9 mmol/L (3.6-5.0); SODIUM 141.5 mmol/L (137-145); TRIGLYCERIDES 135 mg/dL (<150)
[2019-01-14 06:03] LABS: DIRECT LDL 81 mg/dL (<100)
[2019-01-14 06:22] LABS: BILIRUBIN,TOTAL 2.2 mg/dL (0.2-1.3)
[2019-01-14] MEDS ORDERED: GLYCOPYRROLATE 1 MG/5 ML SYRINGE ONE (08:08)
[2019-01-14] MEDS ORDERED: ONDANSETRON HCL INJ/PF 4 MG/2 ML SDV ONE (08:08)
[2019-01-14] MEDS ORDERED: SUCCINYLCHOLINE CHLORIDE INJ 200 MG/10 ML VIAL ONE (08:08)
[2019-01-14] MEDS ORDERED: DEXAMETHASONE SOD PHOSPHATE INJ 4 MG/1 ML VIAL ONE (08:08)
[2019-01-14] MEDS ORDERED: NEOSTIGMINE METHYLSULFATE 10 MG/10 ML VIAL ONE (08:08)
--- NOTE | 2019-01-14 12:36 | PDOC PROGRESS REPORT ---
Subjective Progress Note for:: 01/14/19 Subjective:: Much less abdominal pains today Reason For Visit: GALLSTONE PANCREATITIS Physical Exam Vital Signs: Temp Pulse Resp BP Pulse Ox 98.3 F 70 12 149/62 H 92 01/14/19 09:00 01/14/19 09:00 01/14/19 09:00 01/14/19 09:00 01/14/19 09:00 Intake & Output 01/13/19 01/14/19 01/15/19 06:59 06:59 06:59 Intake Total 3000 3236 Balance 3000 3236 Weight 82.9 kg 85.3 kg Exam: abdomen is soft with mild tenderness RUQ on deep palpation Results Laboratory Results: 01/14/19 04:29 01/14/19 04:29 01/13/19 01/13/19 01/14/19 05:10 22:30 04:29 WBC 7.4 RBC 3.93 Hgb 11.9 L Hct 35.2 L MCV 90 MCH 30.3 MCHC 33.8 RDW 13.8 Plt Count 159 Sodium Potassium 3.9 Chloride Carbon Dioxide Anion Gap BUN Creatinine Est GFR ( Amer) Est GFR (Non-Af Amer) Glucose Calcium Magnesium 1.6 Total Bilirubin AST ALT Alkaline Phosphatase Total Protein Albumin Triglycerides Cholesterol LDL Cholesterol Direct VLDL Cholesterol HDL Cholesterol Lipase 01/14/19 04:29 WBC RBC Hgb Hct MCV MCH MCHC RDW Plt Count Sodium 141.5 Potassium 3.9 Chloride 104 Carbon Dioxide 31 H Anion Gap 7 BUN 13 Creatinine 0.82 Est GFR ( Amer) > 60 Est GFR (Non-Af Amer) > 60 Glucose 76 Calcium 8.9 Magnesium Total Bilirubin 2.2 H D AST 96 H ALT 194 H Alkaline Phosphatase 213 H Total Protein 5.0 L Albumin 3.0 L Triglycerides 135 Cholesterol 165.07 LDL Cholesterol Direct 81 VLDL Cholesterol 27.0 HDL Cholesterol 52 Lipase 110.0 Impressions: Abdomen/Pelvis CT 01/12/19 08:35 IMPRESSION: Pericholecystic fluid, question acute cholecystitis. Right upper quadrant ultrasound is recommended to evaluate for gallstones/ common bile duct stones Abdomen Ultrasound 01/12/19 10:46 IMPRESSION: Gallstones and gall sludge with thickening of the gallbladder wall to 0.5 cm. Small volume pericholecystic fluid. No biliary ductal dilatation. Sonographic Johnson sign indeterminate due to patient medication. Findings are concerning for acute cholecystitis. HIDA may be used to evaluate for patency of the cystic and common bile ducts if desired. Assessment & Plan - Diagnosis (1) Gallstone pancreatitis Is this a current diagnosis for this admission?: Yes (2) Pancreatitis Qualifiers: Chronicity: acute Pancreatitis type: other Acute pancreatitis complication: unspecified Qualified Code(s): K85.80 - Other acute pancreatitis without necrosis or infection Is this a current diagnosis for this admission?: Yes - Time Time Spent with patient: 15-24 minutes - Inpatient Certification Medical Necessity: Need for IV Antibiotics, Need for Surgery - Plan Summary Plan Summary: For ERCP today Possible lap lucy tomorrow
[2019-01-14] MEDS ORDERED: ONDANSETRON HCL INJ/PF 4 MG/2 ML SDV IV PRN ×2 (14:52→18:47)
[2019-01-14] MEDS ORDERED: KETOROLAC TROMETHAMINE INJ/PF 30 MG/1 ML SDV IV PRN (14:52)
--- NOTE | 2019-01-14 17:38 | PDOC PROGRESS REPORT ---
Subjective Progress Note for:: 01/14/19 Subjective:: The patient is a 78-year-old female with a past medical history of hypertension who was admitted 01/13/2019 by the surgical service for gallstone pancreatitis. The patient was seen on morning rounds. She was found resting in bed comfortably on room air. She reports that her abdominal pain has improved significantly and she only has mild intermittent discomfort. She reports slight nausea but without emesis; primary complaint is that she has hungry. She is looking forward to her ERCP scheduled by Dr. Teresa for 6:00 this evening with follow up lap lucy anticipated tomorrow. She is hopeful to be discharged shortly thereafter. She has no other questions or concerns at this time. No concerns per nursing. Reason For Visit: GALLSTONE PANCREATITIS Physical Exam Vital Signs: Temp Pulse Resp BP Pulse Ox 98.3 F 70 12 143/53 H 92 01/14/19 15:18 01/14/19 15:18 01/14/19 15:18 01/14/19 15:18 01/14/19 15:18 Intake & Output 01/13/19 01/14/19 01/15/19 06:59 06:59 06:59 Intake Total 3000 3236 1200 Balance 3000 3236 1200 Weight 82.9 kg 85.3 kg General appearance: PRESENT: no acute distress, cooperative, well-developed, well-nourished Head exam: PRESENT: atraumatic, normocephalic Eye exam: PRESENT: conjunctiva pink, EOMI, PERRLA. ABSENT: scleral icterus Mouth exam: PRESENT: moist, tongue midline Respiratory exam: PRESENT: clear to auscultation [place], symmetrical, unlabored. ABSENT: rales, rhonchi, wheezes Cardiovascular exam: PRESENT: RRR, +S1, +S2. ABSENT: diastolic murmur, rubs, systolic murmur Pulses: PRESENT: normal dorsalis pedis pul Vascular exam: PRESENT: normal capillary refill GI/Abdominal exam: PRESENT: normal bowel sounds, soft, tenderness. ABSENT: distended, guarding, mass, organolmegaly, rebound Rectal exam: PRESENT: deferred Extremities exam: PRESENT: full ROM. ABSENT: calf tenderness, clubbing, pedal edema Neurological exam: PRESENT: alert, awake, oriented to person, oriented to place, oriented to time, oriented to situation, CN II-XII grossly intact. ABSENT: motor sensory deficit Psychiatric exam: PRESENT: appropriate affect, normal mood. ABSENT: homicidal ideation, suicidal ideation Skin exam: PRESENT: dry, intact, warm. ABSENT: cyanosis, rash Results Laboratory Results: 01/14/19 04:29 01/14/19 04:29 01/13/19 01/14/19 01/14/19 22:30 04:29 04:29 WBC 7.4 RBC 3.93 Hgb 11.9 L Hct 35.2 L MCV 90 MCH 30.3 MCHC 33.8 RDW 13.8 Plt Count 159 Sodium 141.5 Potassium 3.9 3.9 Chloride 104 Carbon Dioxide 31 H Anion Gap 7 BUN 13 Creatinine 0.82 Est GFR ( Amer) > 60 Est GFR (Non-Af Amer) > 60 Glucose 76 Calcium 8.9 Total Bilirubin 2.2 H D AST 96 H ALT 194 H Alkaline Phosphatase 213 H Total Protein 5.0 L Albumin 3.0 L Triglycerides 135 Cholesterol 165.07 LDL Cholesterol Direct 81 VLDL Cholesterol 27.0 HDL Cholesterol 52 Lipase 110.0 Impressions: Abdomen/Pelvis CT 01/12/19 08:35 IMPRESSION: Pericholecystic fluid, question acute cholecystitis. Right upper quadrant ultrasound is recommended to evaluate for gallstones/ common bile duct stones Abdomen Ultrasound 01/12/19 10:46 IMPRESSION: Gallstones and gall sludge with thickening of the gallbladder wall to 0.5 cm. Small volume pericholecystic fluid. No biliary ductal dilatation. Sonographic Johnson sign indeterminate due to patient medication. Findings are concerning for acute cholecystitis. HIDA may be used to evaluate for patency of the cystic and common bile ducts if desired. Assessment & Plan - Diagnosis (1) Gallstone pancreatitis Is this a current diagnosis for this admission?: Yes Plan: Leukocytosis has resolved, LFTs are trending down (bili 2.2 down from 4.8, AST 96 down from 359, ALT 194 down from 418). Lipase is now normal. Lipid panel is normal. Primary management per surgical team. Scheduled for ERCP with Dr. Teresa this evening. Likely lap lucy tomorrow. Continue n.p.o. status with IV maintenance fluids. Analgesics and antiemetics as needed. (2) Cholecystitis Is this a current diagnosis for this admission?: Yes Plan: Leukocytosis has resolved, patient is afebrile, discomfort has significantly improved. No cultures were obtained. Primary management per surgical team. Spoke with Dr. Corley today; anticipates the patient will be ready for lap lucy tomorrow. Continue on IV Zosyn for now. (3) Hypertension Is this a current diagnosis for this admission?: Yes Plan: Blood pressures are acceptable for age; 143/53 Only on hydrochlorothiazide at home; holding for now due to soft blood pressures yesterday and continued n.p.o. status. (4) Hypokalemia Is this a current diagnosis for this admission?: Yes Plan: Replete. Continue monitor with daily chemistries. - Time Time Spent with patient: Less than 15 minutes Medications reviewed and adjusted accordingly: Yes Anticipated discharge: Home Within: within 72 hours
[2019-01-14] MEDS ORDERED: FENTANYL CITRATE INJ/PF 100 MCG/2 ML AMPUL ONE (18:02)
[2019-01-14] MEDS ORDERED: MIDAZOLAM 2 MG/2 ML INJ ONE (18:02)
[2019-01-14] MEDS ORDERED: PROPOFOL INJ 200 MG/20 ML VIAL IV ONE (18:03)
[2019-01-14] MEDS ORDERED: PROMETHAZINE HCL INJ 25 MG/1 ML VIAL IV PRN (18:47)
[2019-01-14] MEDS ORDERED: MEPERIDINE HCL/PF INJ 25 MG/1 ML DISP.SYRIN IV PRN (18:47)
[2019-01-14] MEDS ORDERED: FENTANYL CITRATE INJ/PF 100 MCG/2 ML AMPUL IV PRN ×3 (18:47)
[2019-01-14] MEDS ORDERED: DIPHENHYDRAMINE HCL 50 MG/ML VIAL IV PRN (18:47)
--- NOTE | 2019-01-14 19:08 | PDOC CONSULTATION ---
Consultation Consult Date: 01/13/19 History of Present Illness Admission Date/PCP: 01/13/19 12:47 MARILIN CASTANON MD History of Present Illness: ANH RAPP is a 78 year old femalePatient who was admitted with abdominal pain and a diagnosis of gallstone pancreatitis. She was having recurrent abdominal pain, nausea and vomiting prior to being admitted. On admission her bilirubin was 3.5 with elevated transaminases and alkaline phosphatase. Lipase was 32,000. Her lipase was down to 673 on 01/13/2019. Her ultrasound showed gallstones and sludge with gallbladder wall thickening. There was small amount of pericholecystic fluid and no biliary dilation Past Medical History Cardiac Medical History: Reports: Hypertension - medicated Denies: Myocardial Infarction Pulmonary Medical History: Denies: Asthma Neurological Medical History: Denies: Seizures GI Medical History: Denies: Hepatitis, Hiatal Hernia Hematology: Denies: Anemia, Sickle Cell Disease Past Surgical History Past Surgical History: Reports: Orthopedic Surgery - back, hips, Denies: Amputation, Hysterectomy, Mastectomy, Pacemaker Social History Smoking Status: Never Smoker Frequency of Alcohol Use: None Hx Recreational Drug Use: No Hx Prescription Drug Abuse: No - Advance Directive Resuscitation Status: Full Code Family History Family History: Reviewed & Not Pertinent Parental Family History Reviewed: No Children Family History Reviewed: NA Sibling(s) Family History Reviewed.: NA Medication/Allergy Home Medications: Colchicine [Colcrys] 0.6 mg PO QAM 10/01/14 Diclofenac Sodium [Voltaren] 75 mg PO BID 10/01/14 Hydrochlorothiazide 25 mg PO QAM 10/01/14 Omeprazole 20 mg PO QHS 10/01/14 Allergies/Adverse Reactions: lisinopril [Lisinopril] Allergy (Mild, Verified 01/13/19 13:25) cough Review of Systems All systems: reviewed and no additional remarkable complaints except as stated Physical Exam Vital Signs: Temp Pulse Resp BP Pulse Ox 98.3 F 70 12 143/53 H 92 01/14/19 18:08 01/14/19 18:08 01/14/19 18:08 01/14/19 18:08 01/14/19 18:08 Intake & Output 01/13/19 01/14/19 01/15/19 06:59 06:59 06:59 Intake Total 3000 3236 1200 Balance 3000 3236 1200 Weight 82.9 kg 85.3 kg Exam: General: Patient is alert and looks well. HEENT: There is no pallor or jaundice. PERRLA. Oropharynx normal Respiratory: No chest deformity. No respiratory distress. Chest wall palpitation was unremarkable. Breath sounds were normal Cardiovascular: Heart sounds 1 and 2 normal with no murmurs. Abdominal: Not distended. There is some epigastric tenderness. Liver and spleen not palpable. No ascites demonstrated. Bowel sounds active. Rectal examination was deferred. Extremities: No edema Neurological: Alert and oriented x4. Grossly nonfocal. Normal speech Skin: No significant rash Psychological: Normal affect Results Laboratory Results: 01/14/19 04:29 01/14/19 04:29 01/13/19 01/14/19 01/14/19 22:30 04:29 04:29 WBC 7.4 RBC 3.93 Hgb 11.9 L Hct 35.2 L MCV 90 MCH 30.3 MCHC 33.8 RDW 13.8 Plt Count 159 Sodium 141.5 Potassium 3.9 3.9 Chloride 104 Carbon Dioxide 31 H Anion Gap 7 BUN 13 Creatinine 0.82 Est GFR ( Amer) > 60 Est GFR (Non-Af Amer) > 60 Glucose 76 Calcium 8.9 Total Bilirubin 2.2 H D AST 96 H ALT 194 H Alkaline Phosphatase 213 H Total Protein 5.0 L Albumin 3.0 L Triglycerides 135 Cholesterol 165.07 LDL Cholesterol Direct 81 VLDL Cholesterol 27.0 HDL Cholesterol 52 Lipase 110.0 Impressions: Abdomen/Pelvis CT 01/12/19 08:35 IMPRESSION: Pericholecystic fluid, question acute cholecystitis. Right upper quadrant ultrasound is recommended to evaluate for gallstones/ common bile duct stones Abdomen Ultrasound 01/12/19 10:46 IMPRESSION: Gallstones and gall sludge with thickening of the gallbladder wall to 0.5 cm. Small volume pericholecystic fluid. No biliary ductal dilatation. Sonographic Johnson sign indeterminate due to patient medication. Findings are concerning for acute cholecystitis. HIDA may be used to evaluate for patency of the cystic and common bile ducts if desired. Assessment & Plan - Diagnosis (1) Gallstone pancreatitis Is this a current diagnosis for this admission?: Yes Plan: Her symptoms and blood work does suggest gallstone pancreatitis. She is doing better clinically. The need for an ERCP was explained to the patient and she is in agreement. (2) Gallstones Is this a current diagnosis for this admission?: Yes (3) Abnormal liver enzymes Is this a current diagnosis for this admission?: Yes (5) Cholecystitis Is this a current diagnosis for this admission?: Yes
--- NOTE | 2019-01-14 19:09 | Operative Report ---
Operative Report DATE OF SURGERY: 01/14/19 Operative Report: Pre-op diagnosis: Gallstone pancreatitis Post-op diagnosis: 1. Common bile duct sludge 2. Low cystic duct origin at the distal CBD Surgery: ERCP with sphincterotomy and balloon sludge extraction Medications: As per anesthesia Tissue removed: None Procedure: After informed consent obtained from patient, the throat was sprayed with Hurricane and conscious sedation was achieved. The ERCP endoscope was then inserted into the esophagus blindly and advanced into the stomach. The duodenum was entered and the ampulla was identified. Using the triple-lumen sphincterotomy catheter the common bile duct was freely cannulated. A cholangiogram was obtained which showed possible filling defect in the distal common bile duct. The common bile duct and intrahepatic ducts did not appear dilated. A good sized sphincterotomy was then performed using the endocut mode. The catheter was removed over the guidewire before a 9-12 mm balloon catheter was inserted. The balloon was inflated to 12 mm in the proximal common bile duct and pulled down the duct. Some sludge was extracted. The duct was swept one more time. A balloon occlusion cholangiogram was normal. The pancreatic duct was intentionally not cannulated. Patient tolerated procedure well. Findings Common bile duct: Small amount of sludge was removed. The cystic duct insertion was very low at the distal common bile duct Intrahepatic ducts: Normal Pancreatic duct: Not cannulated Plan: Follow-up LFTs OPERATION: .
[2019-01-14] MEDS ORDERED: DEXTROSE 50%-WATER 25 GM/50 ML DISP.SYRIN IV PRN ×2 (20:30)
[2019-01-14] MEDS ORDERED: DEXTROSE 40% GEL 15 GM TUBE PO PRN ×2 (20:30)
[2019-01-14] MEDS ORDERED: GLUCAGON,HUMAN RECOMB 1 MG INJ SUBCUT PRN (20:30)
[2019-01-15] MEDS: PIPERACILLIN SODIUM/TAZOBACTAM 3.375 GM in NORMAL SALINE 100 ML IV SCH ×2 (02:53→09:00)
[2019-01-15] MEDS: NORMAL SALINE 1000 ML 1,000 ML IV PRN (05:27)
[2019-01-15 07:15] LABS: HEMATOCRIT 36.8 % (36.0-47.0); HEMOGLOBIN 12.3 g/dL (12.0-15.5); MEAN CORPUSCULAR HEMOGLOBIN 29.9 pg (27.0-33.4); MEAN CORPUSCULAR HGB CONC 33.3 g/dL (32.0-36.0); MEAN CORPUSCULAR VOLUME 90 fl (80-97); PLATELET COUNT 175 10^3/uL (150-450); RED CELL DISTRIBUTION WIDTH 13.9 % (11.5-14.0)
[2019-01-15 07:44] LABS: ALANINE AMINOTRANSFERASE 166 U/L (9-52); ALBUMIN 3.1 g/dL (3.5-5.0); ALKALINE PHOSPHATASE 193 U/L (38-126); ANION GAP 10 (5-19); ASPARTATE AMINO TRANSFERASE 68 U/L (14-36); BILIRUBIN,DIRECT 0.7 mg/dL (0.0-0.4); BILIRUBIN,TOTAL 1.2 mg/dL (0.2-1.3); BLOOD UREA NITROGEN 17 mg/dL (7-20); CALCIUM 8.6 mg/dL (8.4-10.2); CARBON DIOXIDE 25 mmol/L (22-30); CHLORIDE 107 mmol/L (98-107); GLUCOSE 90 mg/dL (75-110); LIPASE 34.9 U/L (23-300); POTASSIUM 4.2 mmol/L (3.6-5.0); SODIUM 142.2 mmol/L (137-145); TOTAL PROTEIN 5.4 g/dL (6.3-8.2)
[2019-01-15] MEDS ORDERED: ACETAMINOPHEN 1,000 MG/100 ML RTUPB IV ONE (08:36)
[2019-01-15] MEDS ORDERED: MIDAZOLAM 2 MG/2 ML INJ ONE (08:36)
[2019-01-15] MEDS ORDERED: PROPOFOL INJ 200 MG/20 ML VIAL IV ONE (08:36)
[2019-01-15] MEDS ORDERED: FENTANYL CITRATE INJ/PF 100 MCG/2 ML AMPUL ONE (08:36)
--- NOTE | 2019-01-15 08:40 | RADIOLOGY REPORT (SQ) ---
EXAM DESCRIPTION: ENDO CATH/BILIARY DUCT; NO CHG FLUORO COMPLETED DATE/TIME: 01/14/2019 7:28 pm REASON FOR STUDY: ERCP COMPARISON: Abdominal ultrasound 01/12/2019 CT abdomen pelvis 01/12/2019 FLUOROSCOPY TIME: 4.2 minutes 6 digital radiographic images saved to PACS. TECHNIQUE: Intra-operative images acquired during surgical procedure to evaluate progress. NUMBER OF IMAGES: 6 digital C-arm images LIMITATIONS: None. FINDINGS: Fluoro and imaging during ERCP. Cereal images demonstrate contrast injection into the com mon bile duct, and sweeping of the duct with a balloon tipped catheter. Please see the operative rep ort for further details. IMPRESSION: Intra procedural imaging during ERCP COMMENT: Quality ID 145: Final reports for procedures using fluoroscopy that document radiation exp osure indices, or exposure time and number of fluorographic images (if radiation exposure indices are not available) Please consult full operative report of the attending physician for description of the procedure. TECHNICAL DOCUMENTATION: JOB ID: [id number] [employer]- All Rights Reserved Reading location - IP/workstation name: [email or web address]
--- NOTE | 2019-01-15 08:40 | RADIOLOGY REPORT (SQ) ---
EXAM DESCRIPTION: ENDO CATH/BILIARY DUCT; NO CHG FLUORO COMPLETED DATE/TIME: 01/14/2019 7:28 pm REASON FOR STUDY: ERCP COMPARISON: Abdominal ultrasound 01/12/2019 CT abdomen pelvis 01/12/2019 FLUOROSCOPY TIME: 4.2 minutes 6 digital radiographic images saved to PACS. TECHNIQUE: Intra-operative images acquired during surgical procedure to evaluate progress. NUMBER OF IMAGES: 6 digital C-arm images LIMITATIONS: None. FINDINGS: Fluoro and imaging during ERCP. Cereal images demonstrate contrast injection into the com mon bile duct, and sweeping of the duct with a balloon tipped catheter. Please see the operative rep ort for further details. IMPRESSION: Intra procedural imaging during ERCP COMMENT: Quality ID [id number]: Final reports for procedures using fluoroscopy that document radiation exp osure indices, or exposure time and number of fluorographic images (if radiation exposure indices are not available) Please consult full operative report of the attending physician for description of the procedure. TECHNICAL DOCUMENTATION: JOB ID: [id number] [employer]- All Rights Reserved Reading location - IP/workstation name: [email or web address]
--- NOTE | 2019-01-15 08:52 | PDOC PROGRESS REPORT ---
Subjective Progress Note for:: 01/15/19 Subjective:: Feels well. No abdominal pain. Reason For Visit: GALLSTONE PANCREATITIS Physical Exam Vital Signs: Temp Pulse Resp BP Pulse Ox 98.5 F 56 L 12 144/55 H 92 01/15/19 07:44 01/15/19 07:44 01/15/19 07:44 01/15/19 07:44 01/15/19 07:44 Intake & Output 01/14/19 01/15/19 01/16/19 06:59 06:59 06:59 Intake Total 3236 3890 Output Total 5 Balance 3236 3885 Weight 85.3 kg 88.2 kg General appearance: PRESENT: no acute distress, cooperative Respiratory exam: PRESENT: clear to auscultation [place] Cardiovascular exam: PRESENT: RRR GI/Abdominal exam: PRESENT: other - Soft, nondistended, nontender to palpation. Extremities exam: PRESENT: other - No swelling and no tenderness Results Laboratory Results: 01/15/19 06:24 01/15/19 06:24 01/15/19 01/15/19 06:24 06:24 WBC 4.0 RBC 4.10 Hgb 12.3 Hct 36.8 MCV 90 MCH 29.9 MCHC 33.3 RDW 13.9 Plt Count 175 Sodium 142.2 Potassium 4.2 Chloride 107 Carbon Dioxide 25 Anion Gap 10 BUN 17 Creatinine 0.79 Est GFR ( Amer) > 60 Est GFR (Non-Af Amer) > 60 Glucose 90 Calcium 8.6 Total Bilirubin 1.2 AST 68 H ALT 166 H Alkaline Phosphatase 193 H Total Protein 5.4 L Albumin 3.1 L Lipase 34.9 Impressions: Abdomen/Pelvis CT 01/12/19 08:35 IMPRESSION: Pericholecystic fluid, question acute cholecystitis. Right upper quadrant ultrasound is recommended to evaluate for gallstones/ common bile duct stones Abdomen Ultrasound 01/12/19 10:46 IMPRESSION: Gallstones and gall sludge with thickening of the gallbladder wall to 0.5 cm. Small volume pericholecystic fluid. No biliary ductal dilatation. Sonographic Johnson sign indeterminate due to patient medication. Findings are concerning for acute cholecystitis. HIDA may be used to evaluate for patency of the cystic and common bile ducts if desired. Catheter Placement 01/14/19 00:00 IMPRESSION: Intra procedural imaging during ERCP Fluoroscopy 01/14/19 00:00 IMPRESSION: Intra procedural imaging during ERCP Assessment & Plan - Diagnosis (1) Gallstone pancreatitis Is this a current diagnosis for this admission?: Yes Plan: Status post ERCP with sphincterotomy. Patient doing very well. Will proceed with laparoscopic cholecystectomy. I discussed with the patient the risk and benefits of the procedure including risk of conversion to an open procedure, risk of bleeding, infection, bile duct injury, intestinal injury, postcholecystectomy diarrhea and cardiopulmonary risks. Patient understands and agrees to proceed.
[2019-01-15] MEDS ORDERED: BUPIVACAINE HCL 0.25 % INJ/PF (2.5 MG/1 ML) 30 ML VIAL ONE (09:05)
[2019-01-15] MEDS ORDERED: MORPHINE SULFATE 10 MG/ML INJ IV PRN (09:10)
[2019-01-15] MEDS ORDERED: ONDANSETRON HCL INJ/PF 4 MG/2 ML SDV IV PRN (09:10)
[2019-01-15] MEDS ORDERED: MEPERIDINE HCL/PF INJ 25 MG/1 ML DISP.SYRIN IV PRN (09:10)
[2019-01-15] MEDS ORDERED: PROMETHAZINE HCL INJ 25 MG/1 ML VIAL IV PRN (09:10)
[2019-01-15] MEDS ORDERED: FENTANYL CITRATE INJ/PF 100 MCG/2 ML AMPUL IV PRN ×3 (09:10)
[2019-01-15] MEDS ORDERED: DIPHENHYDRAMINE HCL 50 MG/ML VIAL IV PRN (09:10)
[2019-01-15] MEDS ORDERED: ONDANSETRON HCL INJ/PF 4 MG/2 ML SDV ONE (09:17)
[2019-01-15] MEDS ORDERED: GLYCOPYRROLATE 1 MG/5 ML SYRINGE ONE (09:17)
[2019-01-15] MEDS ORDERED: ROCURONIUM BROMIDE INJ 50 MG/5 ML VIAL IV ONE (09:17)
[2019-01-15] MEDS ORDERED: PHENYLEPHRINE HCL INJ/PF 10 MG/1 ML SDV ONE (09:17)
[2019-01-15] MEDS ORDERED: KETOROLAC TROMETHAMINE 60 MG/2 ML SDV ONE (09:17)
[2019-01-15] MEDS ORDERED: SUCCINYLCHOLINE CHLORIDE INJ 200 MG/10 ML VIAL ONE (09:17)
[2019-01-15] MEDS ORDERED: DEXAMETHASONE SOD PHOSPHATE INJ 4 MG/1 ML VIAL ONE (09:17)
--- NOTE | 2019-01-15 10:40 | Operative Report ---
Operative Report DATE OF SURGERY: 01/14/19 PREOPERATIVE DIAGNOSIS: Gallstone pancreatitis POSTOPERATIVE DIAGNOSIS: Gallstone pancreatitis OPERATION: Laparoscopic cholecystectomy. SURGEON: JACLYN CHEN ANESTHESIA: GA TISSUE REMOVED OR ALTERED: Gallbladder COMPLICATIONS: None ESTIMATED BLOOD LOSS: Minimal INTRAOPERATIVE FINDINGS: Multiple gallstones. PROCEDURE: Informed consent was obtained. Patient was brought to the operating room placed operating table in supine position. After satisfactory induction of general anesthesia, patient's abdomen was prepped and draped in usual sterile fashion. A infraumbilical midline incision was made and dissection carried down to the fascia the peritoneal cavity entered without difficulty. Aguilar trocar was inserted. Pneumoperitoneum produced good patient toleration. 5 mm trocar was placed in the subxiphoid location.Two 5 mm trochars were placed in the right subcostal location. The gallbladder was grasped and retracted cephalad over the dome of the liver. The infundibulum of the gallbladder was grasped retracted laterally and inferiorly thus exposing calot's triangle. The cystic duct gallbladder junction was clearly identified and the cystic duct was clipped and divided. There was an enlarged Calot's node that was dissected off of the gallbladder and clipped at its attachment and peel down. Cystic artery was clipped and divided. The gallbladder was taken off the gallbladder bed using the hook electrocautery technique. The gallbladder was removed with an Endobag through the Aguilar trocar site fascial defect. Operative field was irrigated and irrigation fluid was aspirated. Irrigation fluid was perfectly clear at the end of the case. Hemostasis appeared excellent. All trochars were removed under the direct vision a laparoscope to ensure hemostasis. The Aguilar trocar site fascial defect was closed with interrupted Vicryl sutures. All skin incisions were closed with subcuticular interrupted Monocryl sutures. Marcaine was injected at the port sites. Patient tolerated procedure well no apparent complications and was taken to the recovery area in stable condition.
--- NOTE | 2019-01-15 17:08 | PDOC PROGRESS REPORT ---
Subjective Progress Note for:: 01/15/19 Subjective:: The patient is a 78-year-old female with a past medical history of hypertension who was admitted 01/13/2019 by the surgical service for gallstone pancreatitis. The patient was seen on afternoon rounds returning from [facility]. She was found resting in bed comfortably on room air. She reports that she is feeling well and is looking forward to eating later today. She denies abdominal pain at present and has already been ambulating in the hallway. She further denies fever, chills, chest pain, dyspnea, cough, nausea and vomiting. She is hopeful to be discharged tomorrow morning. She has no other questions or concerns at this time. No concerns per nursing. Reason For Visit: GALLSTONE PANCREATITIS Physical Exam Vital Signs: Temp Pulse Resp BP Pulse Ox 97.9 F 73 12 178/78 H 95 01/15/19 14:05 01/15/19 14:05 01/15/19 14:05 01/15/19 14:05 01/15/19 14:05 Intake & Output 01/14/19 01/15/19 01/16/19 06:59 06:59 06:59 Intake Total 3236 3890 1250 Output Total 5 25 Balance 3236 3885 1225 Weight 85.3 kg 88.2 kg General appearance: PRESENT: no acute distress, cooperative, well-developed, well-nourished Head exam: PRESENT: atraumatic, normocephalic Eye exam: PRESENT: conjunctiva pink, EOMI, PERRLA. ABSENT: scleral icterus Ear exam: PRESENT: normal external ear exam Mouth exam: PRESENT: moist, tongue midline Neck exam: ABSENT: carotid bruit, JVD, lymphadenopathy, thyromegaly Respiratory exam: PRESENT: clear to auscultation [place], symmetrical, unlabored. ABSENT: rales, rhonchi, wheezes Cardiovascular exam: PRESENT: RRR. ABSENT: diastolic murmur, rubs, systolic murmur Pulses: PRESENT: normal dorsalis pedis pul Vascular exam: PRESENT: normal capillary refill GI/Abdominal exam: PRESENT: normal bowel sounds, soft. ABSENT: distended, guarding, mass, organolmegaly, rebound, tenderness Rectal exam: PRESENT: deferred Extremities exam: PRESENT: full ROM. ABSENT: calf tenderness, clubbing, pedal e [place] Neurological exam: PRESENT: alert, awake, oriented to person, oriented to place, oriented to time, oriented to situation, CN II-XII grossly intact. ABSENT: motor sensory deficit Psychiatric exam: PRESENT: appropriate affect, normal mood. ABSENT: homicidal ideation, suicidal ideation Skin exam: PRESENT: dry, intact, warm. ABSENT: cyanosis, rash Results Laboratory Results: 01/15/19 06:24 01/15/19 06:24 01/15/19 01/15/19 06:24 06:24 WBC 4.0 RBC 4.10 Hgb 12.3 Hct 36.8 MCV 90 MCH 29.9 MCHC 33.3 RDW 13.9 Plt Count 175 Sodium 142.2 Potassium 4.2 Chloride 107 Carbon Dioxide 25 Anion Gap 10 BUN 17 Creatinine 0.79 Est GFR ( Amer) > 60 Est GFR (Non-Af Amer) > 60 Glucose 90 Calcium 8.6 Total Bilirubin 1.2 AST 68 H ALT 166 H Alkaline Phosphatase 193 H Total Protein 5.4 L Albumin 3.1 L Lipase 34.9 Impressions: Abdomen/Pelvis CT 01/12/19 08:35 IMPRESSION: Pericholecystic fluid, question acute cholecystitis. Right upper quadrant ultrasound is recommended to evaluate for gallstones/ common bile duct stones Abdomen Ultrasound 01/12/19 10:46 IMPRESSION: Gallstones and gall sludge with thickening of the gallbladder wall to 0.5 cm. Small volume pericholecystic fluid. No biliary ductal dilatation. Sonographic Johnson sign indeterminate due to patient medication. Findings are concerning for acute cholecystitis. HIDA may be used to evaluate for patency of the cystic and common bile ducts if desired. Catheter Placement 01/14/19 00:00 IMPRESSION: Intra procedural imaging during ERCP Fluoroscopy 01/14/19 00:00 IMPRESSION: Intra procedural imaging during ERCP Assessment & Plan - Diagnosis (1) Gallstone pancreatitis Is this a current diagnosis for this admission?: Yes Plan: Leukocytosis has resolved, LFTs are trending down (total bili is normal, AST 68 down from 359, ALT 166 down from 418). Lipase is now normal. Lipid panel is normal. Now status post ERCP by Dr. Teresa and lap lucy by Dr. Melo Primary management per surgical team. Clear diet per surgery. Analgesics and antiemetics as needed. (2) Cholecystitis Is this a current diagnosis for this admission?: Yes Plan: Leukocytosis has resolved, patient is afebrile, discomfort has significantly improved. No cultures were obtained. Primary management per surgical team. Discussed with surgery; IV Zosyn discontinued. Remaining plan as above. (3) Hypertension Is this a current diagnosis for this admission?: Yes Plan: Blood pressures are somewhat elevated today; 161/76. Possibly related to pain. We will resume home dose hydrochlorothiazide today. Analgesics as needed (4) Hypokalemia Is this a current diagnosis for this admission?: Yes Plan: Replete. Continue monitor with daily chemistries. - Time Time Spent with patient: Less than 15 minutes Medications reviewed and adjusted accordingly: Yes Anticipated discharge: Home Within: within 24 hours - Per surgical team.
--- NOTE | 2019-01-15 17:50 | PDOC PROGRESS REPORT ---
Subjective Progress Note for:: 01/15/19 Subjective:: Feels well. No complaints. Reason For Visit: GALLSTONE PANCREATITIS Physical Exam Vital Signs: Temp Pulse Resp BP Pulse Ox 97.3 F 81 13 152/73 H 99 01/15/19 17:05 01/15/19 17:05 01/15/19 17:05 01/15/19 17:05 01/15/19 17:05 Intake & Output 01/14/19 01/15/19 01/16/19 06:59 06:59 06:59 Intake Total 3236 3890 2250 Output Total 5 25 Balance 3236 3885 2225 Weight 85.3 kg 88.2 kg General appearance: PRESENT: no acute distress, cooperative Respiratory exam: PRESENT: clear to auscultation [place] Cardiovascular exam: PRESENT: RRR GI/Abdominal exam: PRESENT: other - Soft, nondistended, minimal tenderness. Extremities exam: PRESENT: other - No swelling no tenderness Results Laboratory Results: 01/15/19 06:24 01/15/19 06:24 01/15/19 01/15/19 06:24 06:24 WBC 4.0 RBC 4.10 Hgb 12.3 Hct 36.8 MCV 90 MCH 29.9 MCHC 33.3 RDW 13.9 Plt Count 175 Sodium 142.2 Potassium 4.2 Chloride 107 Carbon Dioxide 25 Anion Gap 10 BUN 17 Creatinine 0.79 Est GFR ( Amer) > 60 Est GFR (Non-Af Amer) > 60 Glucose 90 Calcium 8.6 Total Bilirubin 1.2 AST 68 H ALT 166 H Alkaline Phosphatase 193 H Total Protein 5.4 L Albumin 3.1 L Lipase 34.9 Impressions: Abdomen/Pelvis CT 01/12/19 08:35 IMPRESSION: Pericholecystic fluid, question acute cholecystitis. Right upper quadrant ultrasound is recommended to evaluate for gallstones/ common bile duct stones Abdomen Ultrasound 01/12/19 10:46 IMPRESSION: Gallstones and gall sludge with thickening of the gallbladder wall to 0.5 cm. Small volume pericholecystic fluid. No biliary ductal dilatation. Sonographic Johnson sign indeterminate due to patient medication. Findings are concerning for acute cholecystitis. HIDA may be used to evaluate for patency of the cystic and common bile ducts if desired. Catheter Placement 01/14/19 00:00 IMPRESSION: Intra procedural imaging during ERCP Fluoroscopy 01/14/19 00:00 IMPRESSION: Intra procedural imaging during ERCP Assessment & Plan - Diagnosis (1) Gallstone pancreatitis Is this a current diagnosis for this admission?: Yes Plan: Status post ERCP yesterday and now laparoscopic cholecystectomy. Patient doing very well. Will likely discharge patient home tomorrow if patient continues to do well.
--- NOTE | 2019-01-15 22:12 | EKG REPORT ---
SEVERITY:- NORMAL ECG - SINUS RHYTHM : Confirmed by: Kostas Andino 15-Jan-2019 22:12:10
[2019-01-16 06:33] LABS: HEMATOCRIT 35.1 % (36.0-47.0); MEAN CORPUSCULAR HEMOGLOBIN 30.6 pg (27.0-33.4); MEAN CORPUSCULAR HGB CONC 34.1 g/dL (32.0-36.0); MEAN CORPUSCULAR VOLUME 90 fl (80-97); PLATELET COUNT 177 10^3/uL (150-450); RED BLOOD COUNT 3.91 10^6/uL (3.72-5.28); RED CELL DISTRIBUTION WIDTH 13.8 % (11.5-14.0)
[2019-01-16 06:46] LABS: ALANINE AMINOTRANSFERASE 139 U/L (9-52); ALBUMIN 3.1 g/dL (3.5-5.0); ALKALINE PHOSPHATASE 166 U/L (38-126); ANION GAP 10 (5-19); ASPARTATE AMINO TRANSFERASE 62 U/L (14-36); BILIRUBIN,DIRECT 0.5 mg/dL (0.0-0.4); BILIRUBIN,TOTAL 1.1 mg/dL (0.2-1.3); BLOOD UREA NITROGEN 22 mg/dL (7-20); CALCIUM 8.9 mg/dL (8.4-10.2); CARBON DIOXIDE 26 mmol/L (22-30); CHLORIDE 106 mmol/L (98-107); GLUCOSE 116 mg/dL (75-110); SODIUM 141.6 mmol/L (137-145); TOTAL PROTEIN 5.1 g/dL (6.3-8.2)
[2019-01-16] MEDS ORDERED: HYDROCHLOROTHIAZIDE 25 MG TABLET PO SCH (08:00)
[2019-01-16 13:47] VITALS: BP 143/53
--- NOTE | 2019-01-16 14:14 | PDOC PROGRESS REPORT ---
Subjective Progress Note for:: 01/16/19 Subjective:: The patient is a 78-year-old female with a past medical history of hypertension who was admitted 01/13/2019 by the surgical service for gallstone pancreatitis. The patient was seen on morning rounds. She was found resting in bed comfortably on room air. She reports that she is feeling well and is looking forward to discharging this afternoon. Patient states Surgery has advanced her diet and if she tolerates well will be sent home today. She denies fever, chills, chest pain, dyspnea, cough, abdominal pain, nausea and vomiting. She has questions or concerns at this time. No concerns per nursing. Reason For Visit: GALLSTONE PANCREATITIS Physical Exam Vital Signs: Temp Pulse Resp BP Pulse Ox 97.6 F 67 12 143/53 H 95 01/16/19 13:45 01/16/19 13:45 01/16/19 13:45 01/16/19 13:45 01/16/19 13:45 Intake & Output 01/15/19 01/16/19 01/17/19 06:59 06:59 06:59 Intake Total 3890 2700 Output Total 5 25 Balance 3885 2675 Weight 88.2 kg 87.8 kg General appearance: PRESENT: no acute distress, cooperative, well-developed, well-nourished Head exam: PRESENT: atraumatic, normocephalic Eye exam: PRESENT: conjunctiva pink, EOMI, PERRLA. ABSENT: scleral icterus Mouth exam: PRESENT: moist, tongue midline Respiratory exam: PRESENT: clear to auscultation [place], symmetrical, unlabored. ABSENT: rales, rhonchi, wheezes Cardiovascular exam: PRESENT: RRR, +S1, +S2. ABSENT: diastolic murmur, rubs, systolic murmur Vascular exam: PRESENT: normal capillary refill GI/Abdominal exam: PRESENT: normal bowel sounds, soft. ABSENT: distended, guarding, mass, organolmegaly, rebound, tenderness Rectal exam: PRESENT: deferred Extremities exam: PRESENT: full ROM. ABSENT: calf tenderness, clubbing, pedal edema Neurological exam: PRESENT: alert, awake, oriented to person, oriented to place, oriented to time, oriented to situation, CN II-XII grossly intact. ABSENT: motor sensory deficit Psychiatric exam: PRESENT: appropriate affect, normal mood. ABSENT: homicidal ideation, suicidal ideation Skin exam: PRESENT: dry, intact, warm. ABSENT: cyanosis, rash Results Laboratory Results: 01/16/19 06:08 01/16/19 06:08 01/16/19 01/16/19 06:08 06:08 WBC 10.0 D RBC 3.91 Hgb 12.0 Hct 35.1 L MCV 90 MCH 30.6 MCHC 34.1 RDW 13.8 Plt Count 177 Sodium 141.6 Potassium 4.0 Chloride 106 Carbon Dioxide 26 Anion Gap 10 BUN 22 H Creatinine 0.83 Est GFR ( Amer) > 60 Est GFR (Non-Af Amer) > 60 Glucose 116 H Calcium 8.9 Total Bilirubin 1.1 AST 62 H ALT 139 H Alkaline Phosphatase 166 H Total Protein 5.1 L Albumin 3.1 L Impressions: Abdomen/Pelvis CT 01/12/19 08:35 IMPRESSION: Pericholecystic fluid, question acute cholecystitis. Right upper quadrant ultrasound is recommended to evaluate for gallstones/ common bile duct stones Abdomen Ultrasound 01/12/19 10:46 IMPRESSION: Gallstones and gall sludge with thickening of the gallbladder wall to 0.5 cm. Small volume pericholecystic fluid. No biliary ductal dilatation. Sonographic Johnson sign indeterminate due to patient medication. Findings are concerning for acute cholecystitis. HIDA may be used to evaluate for patency of the cystic and common bile ducts if desired. Catheter Placement 01/14/19 00:00 IMPRESSION: Intra procedural imaging during ERCP Fluoroscopy 01/14/19 00:00 IMPRESSION: Intra procedural imaging during ERCP Assessment & Plan - Diagnosis (1) Gallstone pancreatitis Is this a current diagnosis for this admission?: Yes Plan: Leukocytosis has resolved, LFTs are trending down (total bili is normal, AST 62 down from 359, ALT 139 down from 418). Lipase is now normal. Lipid panel is normal. Now status post ERCP by Dr. Teresa and lap lucy by Dr. Melo Primary management per surgical team. Diet advanced by surgery. Analgesics and antiemetics as needed. Will sign off; please re-consult if we can be of further assistance. (2) Cholecystitis Is this a current diagnosis for this admission?: Yes Plan: Leukocytosis has resolved, patient is afebrile, discomfort has significantly improved. No cultures were obtained. Primary management per surgical team. Discussed with surgery; IV Zosyn discontinued yesterday. Remaining plan as above. (3) Hypertension Is this a current diagnosis for this admission?: Yes Plan: Blood pressures are somewhat elevated today; 151/65, but acceptable for discharge. Improved after resuming HCTZ. Continue home dose hydrochlorothiazide. (4) Hypokalemia Is this a current diagnosis for this admission?: Yes Plan: Replete. Continue monitor with daily chemistries. - Time Time Spent with patient: Less than 15 minutes Medications reviewed and adjusted accordingly: Yes Anticipated discharge: Home Within: Other - Cleared for discharge to home from Medicine's perspective. - Plan Summary Plan Summary: Will sign off; thank you for allowing us to assist with the care of this patient. Please re-consult if we can be of further assistance.
--- NOTE | 2019-02-09 08:20 | DISCHARGE SUMMARY E ---
Discharge Summary NAME: ANH RAPP : 1940 AGE: 78Y ADMITTED: 01/13/2019 DISCHARGED: 01/16/2019 FINAL DIAGNOSES: 1. Acute on chronic cholecystectomy with cholelithiasis. 2. Gallstone pancreatitis. PROCEDURE DONE: 1. On 01/14/2019 ERCP with sphincterotomy and balloon sludge extraction, surgeon *------*. 2. On 01/15/2019 laparoscopic cholecystectomy, surgeon Dr. Chen. HOSPITAL COURSE: This is a 78-year-old female who complained of abdominal pain with nausea and vomiting. She had an ultrasound of the abdomen, which showed gallstones and sludge with thickening of the gallbladder wall. She also had a CT scan of the abdomen, which was suggestive of acute cholecystitis; however, her LFTs were elevated as well as lipase, indicating a common bile duct stone. She underwent ERCP by ____ on 01/14/2019 where sphincterotomy and balloon sludge extraction was performed. The next day on 01/15/2018 the patient underwent laparoscopic cholecystectomy by Dr. Chen. All her enzymes gradually came down and the patient improved and able to tolerate diet well and discharged improved on 01/16/2019 with above final diagnosis. The patient will be followed in the surgical clinic in about 2 weeks. DICTATING PHYSICIAN: JOJO CUADRA M.D. [id number] PHY#: [id number] ID: [id number] JOB#: [id number] ACCT: [id number] cc:GUTIERREZ CHEN M.D., FAUSTINO M.D. >
== END 2019-01-16 14:33 | disposition home or self-care (01) | DRG 418 ==
LOC: ER 07:18 → EH 01-13 12:47 → 4S 01-13 14:16
PROVIDERS: ADMIT Surgery; ATTEND Surgery
PROC: 0FC98ZZ Extirpation of Matter from Common Bile Duct, Via Natural or Artificial Opening Endoscopic (ICD-10-PCS; 2019-01-14)
PROC: 0FT44ZZ Resection of Gallbladder, Percutaneous Endoscopic Approach (ICD-10-PCS; principal; 2019-01-14 17:00)
PROC: BF101ZZ Fluoroscopy of Bile Ducts using Low Osmolar Contrast (ICD-10-PCS; 2019-01-14 17:00)
DX: K85.10 Biliary acute pancreatitis without necrosis or infection (principal); K80.12 Calculus of gallbladder with acute and chronic cholecystitis without obstruction; I10 Essential (primary) hypertension; Z79.899 Other long term (current) drug therapy; E87.6 Hypokalemia; Z87.891 Personal history of nicotine dependence; Z88.8 Allergy status to other drugs, medicaments and biological substances; K83.9 Disease of biliary tract, unspecified
CPT/HCPCS: 36415; 43262; 43264; 732; 74177; 74328; 76705; 790; 80053; 80061; 81001; 83605; 83690; 83735; 84132; 85025; 85027; 88304; 93005; 93010; 93976; 96365; 96375; 99285; J0131; J0330; J1100; J1885; J2250; J2370; J2405; J2543; J2704; J3010; J3480; J3490; J7030; J7120; S0028